=== PATIENT | female | born 1940 | race Caucasian/White ===

== ENCOUNTER 2025-04-28 20:17 | Inpatient (IN) | payer MEDICARE, OTHER ==
[~2025-04-28] VITALS: Ht 152.4 cm; Wt 69.0 kg
[~2025-04-28 20:17] MED LIST: ETOMIDATE 2 MG/ML VIAL ONE; ROCURONIUM BROMIDE 50 MG/5 ML ONE
[2025-04-28] MEDS ORDERED: PROPOFOL 100 ML ONE (20:22)
[2025-04-28] MEDS: PROPOFOL 10MG/ML 50ML 50 ML IV PRN (20:30)
[2025-04-28] MEDS ORDERED: ENALAPRILAT DIHYD. (2.5MG/2ML) 1.25 MG/ML VIAL IV ONE (20:47)
[2025-04-28] MEDS ORDERED: FUROSEMIDE 40 MG/4 ML VIAL ONE (20:47)
[2025-04-28] MEDS: ENALAPRILAT DIHYD. (2.5MG/2ML) 1.25 MG/ML VIAL IV ONE (20:55)
[2025-04-28 21:02] LABS: PLATELET COUNT (AUTO) 208 K/uL (150-450); RED BLOOD CELL COUNT(AUTO) 4.94 MIL/uL (4.0-5.2); RED CELL DISTRIBUTION WIDTH 15.2 % (11.5-15.0); WHITE BLOOD COUNT (AUTO) 8.7 K/uL (4.3-11.0)
[2025-04-28 21:10] LABS: LACTIC ACID 2.7 mmol/L (0.4-2.0)
[2025-04-28 21:15] LABS: INR 1.01 (0.91-1.10)
[2025-04-28 21:26] LABS: ABG BASE EXCESS -3.8 mmol/L (-2.0-3.0); ABG OXYGEN SATURATION 98.5 % (94.0-98.0); ABG PCO2 56.1 mmHg (32.0-45.0); ABG PH 7.252 (7.350-7.450); ABG PO2 151.9 mmHg (83.0-108.0); ABG TOTAL HEMOGLOBIN 14.2 G/dL (12.0-16.0); FRACTIONATED INSPIRED OXYGEN 50.0 %; PEEP,BG 5 cm H2O; SET RATE, BG 16.0; VT, ABG 450 mL
[2025-04-28 21:29] LABS: ASPARTATE AMINOTRANSFERASE 23 U/L (15-37); CALCIUM, SERUM 8.4 mg/dL (8.5-10.1); CREATININE 1.2 mg/dL (0.6-1.3); NT-PRO BNP 3172 pg/mL (0-125); SODIUM SERUM 138 mmol/L (136-145); TOTAL PROTEIN, SERUM 7.3 g/dL (6.4-8.2); UREA NITROGEN, BLOOD 23 mg/dL (7-18)
[2025-04-28] MEDS ORDERED: ENOXAPARIN SODIUM 60 MG/0.6 ML DISP.SYRIN SQ ONE (21:30)
[2025-04-28] MEDS: ENOXAPARIN SODIUM 60 MG/0.6 ML DISP.SYRIN SQ ONE (21:30)
[2025-04-28] MEDS: FUROSEMIDE 40 MG/4 ML VIAL IV ONE (21:33)
[2025-04-28] MEDS ORDERED: CARV3.122 PO (22:39)
[2025-04-28] MEDS ORDERED: LOSA50TA39 PO (22:39)
[2025-04-28] MEDS ORDERED: DORZ10DR18 OP (22:39)
[2025-04-28] MEDS ORDERED: HYDR25TA4 PO (22:39)
[2025-04-28] MEDS ORDERED: ACETAMINOPHEN 650 MG/SUPP.RECT RC PRN (23:00)
[2025-04-28] MEDS ORDERED: PROPOFOL 10MG/ML 50ML 50 ML IV PRN (23:00)
[2025-04-28 23:18] VITALS: BP 157/77; O2SAT 100
[2025-04-28 23:30] VITALS: BP 185/80; O2SAT 100
[2025-04-28] MEDS: ASPIRIN 325 MG TABLET NG ONE (23:44)
[2025-04-28 23:45] VITALS: BP 186/77; O2SAT 100
[2025-04-28] MEDS: PROPOFOL 100 ML IV PRN (23:47)
[2025-04-29] VITALS (43 sets, daily range): BP systolic 102–193; BP diastolic 48–80; TEMP 97.3–98.9; O2SAT 91–100
[2025-04-29] MEDS: hydrALAZINE HCL IV 20 MG VIAL IV PRN (00:01)
[2025-04-29 00:26] LABS: ABG BASE EXCESS 2.1 mmol/L (-2.0-3.0); ABG OXYGEN SATURATION 97.4 % (94.0-98.0); ABG PCO2 40.9 mmHg (32.0-45.0); ABG PH 7.430 (7.350-7.450); ABG PO2 97.3 mmHg (83.0-108.0); ABG TOTAL HEMOGLOBIN 14.3 G/dL (12.0-16.0); FRACTIONATED INSPIRED OXYGEN 40.0 %; PEEP,BG 5 cm H2O; SET RATE, BG 20.0; SITE, ABG LEFT BRACHIAL; VT, ABG 450 mL
[2025-04-29 00:41] LABS: APPEARANCE,URINE CLEAR (CLEAR); BLOOD, URINE TRACE-INTA Ery/uL (NEGATIVE); LEUKOCYTE ESTERASE ,URINE NEGATIVE (NEGATIVE); NITRITE, URINE NEGATIVE (NEGATIVE); UGLUCOSE NEGATIVE (NEGATIVE)
[2025-04-29] MEDS: ATORVASTATIN 40 MG TABLET NG SCH (01:01)
[2025-04-29 01:02] LABS: ADD URINE CULTURE YES; SQUAMOUS EPITHELIAL CELL,UR Moderate /HPF (None Seen)
[2025-04-29 01:03] LABS: COARSE GRANULAR CASTS,URINE Moderate /LPF (None Seen)
[2025-04-29 04:39] LABS: ASPARTATE AMINOTRANSFERASE 37.0 U/L (15-37); CALCIUM, SERUM 8.8 mg/dL (8.5-10.1); CREATININE 0.9 mg/dL (0.6-1.3); PHOSPHORUS 4.0 mg/dL (2.5-4.9); SODIUM SERUM 138.0 mmol/L (136-145); TOTAL PROTEIN, SERUM 6.8 g/dL (6.4-8.2); UREA NITROGEN, BLOOD 21.0 mg/dL (7-18)
[2025-04-29 04:42] LABS: LDL 152.0 mg/dL (0-99)
[2025-04-29] MEDS: LOSARTAN POTASSIUM 50 MG TABLET PO SCH (08:12)
[2025-04-29] MEDS: FUROSEMIDE 40 MG/4 ML VIAL IV SCH (08:12)
[2025-04-29] MEDS: PANTOPRAZOLE 40 MG VIAL IV SCH (08:12)
[2025-04-29] MEDS: HYDROCHLOROTHIAZIDE 25 MG TABLET NG SCH (08:12)
[2025-04-29] MEDS: ASPIRIN 81 MG TAB.CHEW NG SCH (08:13)
[2025-04-29] MEDS: CARVEDILOL 3.125 MG TABLET NG SCH (08:13)
[2025-04-29] MEDS: ENOXAPARIN SODIUM 80 MG/0.8 ML DISP.SYRIN SQ SCH (13:32)
[2025-04-29] MEDS: DOXYCYCLINE HYCLATE (100 MG) 100 MG TABLET PO SCH (14:11)
[2025-04-29 15:30] LABS: ABG BASE EXCESS 3.4 mmol/L (-2.0-3.0); ABG OXYGEN SATURATION 97.8 % (94.0-98.0); ABG PCO2 37.9 mmHg (32.0-45.0); ABG PH 7.472 (7.350-7.450); ABG PO2 101.8 mmHg (83.0-108.0); ABG TOTAL HEMOGLOBIN 14.2 G/dL (12.0-16.0); FRACTIONATED INSPIRED OXYGEN 40.0 %; SET RATE, BG 4.0; SITE, ABG LEFT RADIAL; VT, ABG 450 mL
[2025-04-29] MEDS: IPRATROPIUM NEB FS 0.5 MG/2.5 ML AMPUL.NEB NEB SCH (16:25)
[2025-04-29] MEDS ORDERED: ENOXAPARIN SODIUM 60 MG/0.6 ML DISP.SYRIN SQ SCH ×2 (21:00)
[2025-04-30] VITALS (33 sets, daily range): BP systolic 123–165; BP diastolic 50–73; TEMP 97.7–98.8; O2SAT 90–100
[2025-04-30 04:31] LABS: ASPARTATE AMINOTRANSFERASE 48.0 U/L (15-37); CALCIUM, SERUM 8.9 mg/dL (8.5-10.1); CREATININE 0.8 mg/dL (0.6-1.3); SODIUM SERUM 135.0 mmol/L (136-145); TOTAL PROTEIN, SERUM 6.8 g/dL (6.4-8.2); UREA NITROGEN, BLOOD 18.0 mg/dL (7-18)
[2025-04-30 04:37] LABS: PLATELET COUNT (AUTO) 206 K/uL (150-450); RED BLOOD CELL COUNT(AUTO) 4.83 MIL/uL (4.0-5.2); RED CELL DISTRIBUTION WIDTH 15.4 % (11.5-15.0); WHITE BLOOD COUNT (AUTO) 11.0 K/uL (4.3-11.0)
[2025-04-30] MEDS: POTASSIUM CHLORIDE 20 MEQ POWDER PACKET NG SCH (10:16)
[2025-04-30] MEDS: POTASSIUM CHLORIDE 20 MEQ POWDER PACKET PO SCH (11:20)
[2025-04-30] MEDS: CARVEDILOL 3.125 MG TABLET PO SCH (16:11)
[2025-04-30] MEDS: ATORVASTATIN 40 MG TABLET PO SCH (21:16)
[2025-05-01] VITALS (13 sets, daily range): BP systolic 102–176; BP diastolic 53–77; TEMP 97.6–98.4; O2SAT 95–99
[2025-05-01] MEDS: ONDANSETRON HCL/PF 4 MG/2 ML VIAL IVP PRN (02:20)
[2025-05-01 07:01] LABS: ASPARTATE AMINOTRANSFERASE 37.0 U/L (15-37); CALCIUM, SERUM 9.2 mg/dL (8.5-10.1); CREATININE 0.9 mg/dL (0.6-1.3); SODIUM SERUM 137.0 mmol/L (136-145); TOTAL PROTEIN, SERUM 7.3 g/dL (6.4-8.2); UREA NITROGEN, BLOOD 28.0 mg/dL (7-18)
[2025-05-01] MEDS: PANTOPRAZOLE 40 MG TABLET.DR PO SCH (08:31)
[2025-05-01] MEDS: ASPIRIN 81 MG TAB.CHEW PO SCH (08:32)
[2025-05-01] MEDS: HYDROCHLOROTHIAZIDE 25 MG TABLET PO SCH (08:33)
[2025-05-01] MEDS: HYDROCODONE/APAP 5/325MG TABLET PO PRN (17:20)
[2025-05-02] VITALS (8 sets, daily range): BP systolic 117–150; BP diastolic 50–76; TEMP 97.5–98.3; O2SAT 95–98
[2025-05-02 11:26] LABS: ASPARTATE AMINOTRANSFERASE 28.0 U/L (15-37); CALCIUM, SERUM 8.8 mg/dL (8.5-10.1); CREATININE 1.1 mg/dL (0.6-1.3); SODIUM SERUM 135.0 mmol/L (136-145); TOTAL PROTEIN, SERUM 6.6 g/dL (6.4-8.2); UREA NITROGEN, BLOOD 43.0 mg/dL (7-18)
[2025-05-02] MEDS: METOPROLOL TARTRATE 50 MG TABLET PO SCH (12:32)
[2025-05-02] MEDS: NITROGLYCERIN 30 GM TUBE TP SCH (12:36)
[2025-05-02] MEDS: POTASSIUM CHLORIDE 20 MEQ TAB.PRT.SR PO ONE (13:43)
[2025-05-02] MEDS ORDERED: POTASSIUM CHLORIDE 20 MEQ TAB.PRT.SR PO SCH (14:30)
[2025-05-03] VITALS (12 sets, daily range): BP systolic 126–153; BP diastolic 54–72; TEMP 97.7–98.2; O2SAT 96–99
[2025-05-03] MEDS: VALSARTAN 80 MG TABLET PO SCH (08:43)
[2025-05-03 10:12] LABS: PLATELET COUNT (AUTO) 330 K/uL (150-450); RED BLOOD CELL COUNT(AUTO) 5.18 MIL/uL (4.0-5.2); RED CELL DISTRIBUTION WIDTH 15.0 % (11.5-15.0); WHITE BLOOD COUNT (AUTO) 12.7 K/uL (4.3-11.0)
[2025-05-03 10:43] LABS: ASPARTATE AMINOTRANSFERASE 27.0 U/L (15-37); CALCIUM, SERUM 8.9 mg/dL (8.5-10.1); CREATININE 1.2 mg/dL (0.6-1.3); PHOSPHORUS 4.6 mg/dL (2.5-4.9); SODIUM SERUM 131.0 mmol/L (136-145); TOTAL PROTEIN, SERUM 7.4 g/dL (6.4-8.2); UREA NITROGEN, BLOOD 50.0 mg/dL (7-18)
[2025-05-04] VITALS: BP 142/72; TEMP 98; O2SAT 98
[2025-05-04 02:01] VITALS: O2SAT 96
[2025-05-04 02:16] VITALS: O2SAT 99
[2025-05-04 04:00] VITALS: BP 140/70; TEMP 97.9; O2SAT 98
[2025-05-04 05:57] LABS: PLATELET COUNT (AUTO) 248 K/uL (150-450); RED BLOOD CELL COUNT(AUTO) 4.78 MIL/uL (4.0-5.2); RED CELL DISTRIBUTION WIDTH 14.8 % (11.5-15.0); WHITE BLOOD COUNT (AUTO) 12.7 K/uL (4.3-11.0)
[2025-05-04 06:08] LABS: ASPARTATE AMINOTRANSFERASE 20.0 U/L (15-37); CALCIUM, SERUM 8.5 mg/dL (8.5-10.1); CREATININE 1.0 mg/dL (0.6-1.3); PHOSPHORUS 3.8 mg/dL (2.5-4.9); SODIUM SERUM 130.0 mmol/L (136-145); TOTAL PROTEIN, SERUM 6.4 g/dL (6.4-8.2); UREA NITROGEN, BLOOD 48.0 mg/dL (7-18)
[2025-05-04 08:00] VITALS: BP 137/66; TEMP 97.9; O2SAT 96
[2025-05-04 08:01] LABS: INR 1.02 (0.91-1.10)
[2025-05-04] MEDS ORDERED: ENOXAPARIN SODIUM 60 MG/0.6 ML DISP.SYRIN SQ SCH (09:00)
[2025-05-04 09:15] VITALS: BP 137/66
== END 2025-05-04 18:26 | disposition short-term general hospital (02) | DRG 208 ==
LOC: EDBD 20:22 → ER 20:22 → ICU 21:52 → TELE1 04-30 15:19
PROVIDERS: ADMIT Registered Nurse Psychiatric/Mental Health
PROC: 5A1935Z Respiratory Ventilation, Less than 24 Consecutive Hours (ICD-10-PCS; principal; 2025-04-28)
PROC: 0BH17EZ Insertion of Endotracheal Airway into Trachea, Via Natural or Artificial Opening (ICD-10-PCS; 2025-04-28)
PROC: 4A023N7 Measurement of Cardiac Sampling and Pressure, Left Heart, Percutaneous Approach (ICD-10-PCS; 2025-05-04)
PROC: B211YZZ Fluoroscopy of Multiple Coronary Arteries using Other Contrast (ICD-10-PCS; 2025-05-04)
DX: J96.01 Acute respiratory failure with hypoxia (principal); I21.4 Non-ST elevation (NSTEMI) myocardial infarction; I50.41 Acute combined systolic (congestive) and diastolic (congestive) heart failure; E87.20 Acidosis, unspecified; J44.1 Chronic obstructive pulmonary disease with (acute) exacerbation; J96.02 Acute respiratory failure with hypercapnia; I11.0 Hypertensive heart disease with heart failure; I25.10 Atherosclerotic heart disease of native coronary artery without angina pectoris; I25.5 Ischemic cardiomyopathy; Z95.5 Presence of coronary angioplasty implant and graft; I25.2 Old myocardial infarction; R73.9 Hyperglycemia, unspecified; Z87.891 Personal history of nicotine dependence
CPT/HCPCS: 36415; 36600; 71045-TC; 80048-TC; 80053-TC; 80061-TC; 80076-TC; 81001; 82803-TC; 83605-TC; 83735-TC; 83880; 84100-TC; 84478-TC; 84484-TC; 85025-TC; 85610-TC; 85730-TC; 87040-TC; 87081-TC; 87086-TC; 92526; 92611; 93307-TC; 94002-TC; 94760-TC; 94799-TC; 99082-TC; G0378; J0360; J1650; J1938; J2405; J2470; J2919; J3490